=== PATIENT | female | born 1970 | race Two or more races ===

== ENCOUNTER 2024-01-08 17:38 | Emergency (ER) | payer BC ==
[~2024-01-08] VITALS: Ht 162.6 cm; Wt 65.9 kg
[2024-01-08 17:40] VITALS: BP 124/77; PULSE 104; RESP 20; O2SAT 97
== END 2024-01-08 21:28 | disposition left against medical advice (07) ==
LOC: ER 17:44
DX: G37.3 Acute transverse myelitis in demyelinating disease of central nervous system (principal)

== ENCOUNTER → 2024-04-08 | Outpatient (CLI) | payer BC ==
[2024-04-08 08:36] LABS: Erythrocyte Sedimentation Rate 28 mm/hr (0-20)
[2024-04-08 08:40] LABS: Alanine Aminotransferase 13 U/L (7-40); Alkaline Phosphatase 83 U/L (46-116); Anion Gap 8 (5-15); Aspartate Aminotransferase 12 U/L (13-40); BUN/Creatinine Ratio 18.8 (10.0-20.0); Bilirubin, Total 0.3 mg/dL (0.2-1.0); Blood Urea Nitrogen 15 mg/dL (9-23); CRP High Sensitivity 0.18 mg/dL (<1.0); Calcium 9.7 mg/dL (8.7-10.4); Carbon Dioxide 25 mmol/L (20-31); Chloride 109 mmol/L (98-107); Cholesterol 199 mg/dL (< 200); Glucose 90 mg/dL (74-106); HDL Cholesterol 69 mg/dL (40-59); LDL Cholesterol 121 mg/dL (< 100); Potassium 4.1 mmol/L (3.5-5.1); Sodium 142 mmol/L (136-145); Triglycerides 82 mg/dL (< 150)
[2024-04-08 09:04] LABS: Albumin 4.1 g/dL (3.2-4.8)
[2024-04-09 08:06] LABS: Complement C3 161 mg/dL (82-167); Rheumatoid Arthritis Factor 13.7 IU/mL (<14.0); Thyroid Peroxidase (TPO) Ab 10 IU/mL (0-34)
[2024-04-09 11:07] LABS: Anti-Nuclear Antibody Direct Negative (Negative); Anti-dsDNA Antibody <1 IU/mL (0-9); Antiscleroderma-70 Antibody <0.2 AI (0.0-0.9); RNP Antibody 0.3 AI (0.0-0.9); Sjogren's Anti-SS-A Antibody <0.2 AI (0.0-0.9); Sjogren's Anti-SS-B Antibody <0.2 AI (0.0-0.9); Smith Antibody <0.2 AI (0.0-0.9)
[2024-04-10 12:06] LABS: Actin (Smooth Muscle) Antibody 6 Units (0-19); Mitochondrial (M2) Antibody <20.0 Units (0.0-20.0)
== END | disposition home or self-care (01) ==
LOC: LAB 07:16
PROVIDERS: ATTEND Internal Medicine
DX: R63.0 Anorexia (principal); R20.0 Anesthesia of skin; M48.02 Spinal stenosis, cervical region; R73.03 Prediabetes; H53.9 Unspecified visual disturbance
CPT/HCPCS: 36415; 80053; 80061; 82306; 82607; 83036; 84207; 84443; 85652; 86141; 86160; 86225; 86235; 86376; 86431